=== PATIENT | male | born 1965 | race American Indian/Alaskan Native ===

== ENCOUNTER 2016-07-31 11:00 | Emergency (ER) | payer OTHER ==
--- NOTE | 2016-07-31 11:42 | XRay Report ---
RIGHT ANKLE, 2 views: History: Pain and swelling. Findings: Mild soft tissue swelling is identified. No acute osseous abnormality or joint pathology is identified. The fifth metatarsal base is intact. Probable ossicle adjacent to the distal fibula. Moderate to large plantar spur is noted. Impression: Soft tissue swelling. No acute osseous injury.
[2016-07-31] MEDS ORDERED: TORADOL IM ONE (14:26)
[2016-07-31] MEDS ORDERED: NORCO 5/325 PO ONE (14:26)
[2016-07-31 15:31] VITALS: BP 136/98
--- NOTE | 2016-07-31 15:32 | Emergency Department Report ---
Entered by NAM SAUCEDA, acting as scribe for SONALI COATES PA. ED Lower Extremity HPI - General Chief Complaint: Extremity Injury, Lower Stated Complaint: RT ANKLE INJURY Time Seen by Provider: 07/31/16 14:15 Source: patient Mode of arrival: Ambulatory Limitations: No Limitations - History of Present Illness Initial Comments: 50 year old male presents to the ED for evaluation of right ankle pain secondary to twisting injury yesterday. Patient describes his pain as sharp, throbbing pain. He rates pain as a 8/10 with weight bearing and 0/10 with rest. Denies numbness, weakness, paresthesias. Patient reports sensation and movement are intact distal to injury. Denies chest pain, shortness of breath, abdominal pain, nausea, and vomiting. MD Complaint: ankle injury (right) Onset/Timin -: days(s) Injury: Ankle: Right Type of Injury: other ("twisted") Severity scale (0 -10): 8 (with weight bearing. 0/10 at rest.) Improves With: rest Worsens With: weight bearing Associated Symptoms: ambulatory (with pain). denies: numbness, tingling - Related Data Previous Rx's Medication Instructions Recorded Last Taken Type ALBUTEROL Inhaler [ProAir HFA 2 puff IH QID PRN #1 inhalation 05/12/16 Unknown Rx Inhaler] Azithromycin [Zithromax Z-ACACIA] 250 mg PO QDAY #6 tablet 05/12/16 Unknown Rx Ibuprofen [Motrin] 800 mg PO Q8HR PRN #14 tablet 05/12/16 Unknown Rx Ondansetron [Zofran TAB] 4 mg PO Q8HR PRN #15 tablet 05/12/16 Unknown Rx Promethazine /Codeine 5 ml PO Q6H PRN #120 ml 05/12/16 Unknown Rx [Phenergan/Codeine 6.25-10 mg/5Ml] Naproxen [Naprosyn] 500 mg PO BID #30 tablet 07/31/16 Unknown Rx Allergies Allergy/AdvReac Type Severity Reaction Status Date / Time No Known Allergies Allergy Unverified 06/12/15 08:51 ED Review of Systems Comment: All other systems reviewed and negative Constitutional: denies: chills, fever Respiratory: denies: shortness of breath Cardiovascular: denies: chest pain Gastrointestinal: denies: abdominal pain, nausea, vomiting Musculoskeletal: arthralgia, other Neurological: denies: weakness, numbness, paresthesias ED Past Medical Hx - Past Medical History Hx Hypertension: Yes Hx COPD: Yes - Social History Smoking Status: Current Every Day Smoker Substance Use Type: None - Medications Home Medications: Home Medications Medication Instructions Recorded Confirmed Last Taken Type ALBUTEROL Inhaler [ProAir HFA 2 puff IH QID PRN #1 inhalation 05/12/16 Unknown Rx Inhaler] Azithromycin [Zithromax Z-ACACIA] 250 mg PO QDAY #6 tablet 05/12/16 Unknown Rx Ibuprofen [Motrin] 800 mg PO Q8HR PRN #14 tablet 05/12/16 Unknown Rx Ondansetron [Zofran TAB] 4 mg PO Q8HR PRN #15 tablet 05/12/16 Unknown Rx Promethazine /Codeine 5 ml PO Q6H PRN #120 ml 05/12/16 Unknown Rx [Phenergan/Codeine 6.25-10 mg/5Ml] Naproxen [Naprosyn] 500 mg PO BID #30 tablet 07/31/16 Unknown Rx ED Physical Exam - General Limitations: No Limitations - Other Other exam information: GENERAL: The patient is well-developed and well-nourished. Patient is in NAD. HEAD: Normocephalic. Atraumatic. CHEST/LUNGS: Clear to auscultation throughout. HEART/CARDIOVASCULAR: Regular rate and rhythm. No murmurs, rubs or gallops. ABDOMEN: Abdomen is soft, nontender. Bowel sounds normoactive. No guarding or rebound tenderness. EXTREMITIES: Limited range of motion to right ankle secondary to pain. Lateral aspect of right ankle tender to palpation. Peripheral pulses intact. Capillary refill less than 2 seconds. NEURO: Alert and oriented x 3. GCS score of 15. ED Course Vital Signs 07/31/16 07/31/16 07/31/16 11:08 14:34 15:29 Temperature 98.1 F Pulse Rate 110 H 88 Respiratory 20 20 20 Rate Blood Pressure 139/103 Blood Pressure 136/98 [Left] O2 Sat by Pulse 100 100 Oximetry ED Lower Extremity MDM - Lab Data Vital Signs 07/31/16 07/31/16 07/31/16 11:08 14:34 15:29 Temperature 98.1 F Pulse Rate 110 H 88 Respiratory 20 20 20 Rate Blood Pressure 139/103 Blood Pressure 136/98 [Left] O2 Sat by Pulse 100 100 Oximetry - Radiology Data Radiology results: report reviewed, image reviewed RIGHT ANKLE, 2 views: History: Pain and swelling. Findings: Mild soft tissue swelling is identified. No acute osseous abnormality or joint pathology is identified. The fifth metatarsal base is intact. Probable ossicle adjacent to the distal fibula. Moderate to large plantar spur is noted. Impression: Soft tissue swelling. No acute osseous injury. Transcribed By: TTR Dictated By: SHERON LEY JR, MD Electronically Authenticated By: SHERON LEY JR, MD Signed Date/Time: 07/31/16 1136 - Medical Decision Making 50 year old male patient presents today with right ankle pain secondary to injury, no tingling or numbness, x 2 days. His right ankle x-ray reveals soft tissue swelling, no fractures. Patient is in no acute distress at this time. He will be discharged home and is encouraged to follow up with a primary care provider. He will be sent home on Naprosyn and is encouraged to return to the emergency room for any worsening symptoms. ED Disposition Clinical Impression: Ankle pain Disposition: DISCHARGED TO HOME OR SELFCARE Is pt being admited?: No Does the pt Need Aspirin: No Condition: Stable Instructions: Ankle Sprain (ED), Ankle Exercises (GEN) Additional Instructions: Follow with primary care provider. Return to emergency department if symptoms worsen. Prescriptions: Naproxen [Naprosyn] 500 mg PO BID #30 tablet Referrals: PRIMARY MD MARCY [Primary Care Provider] - 3-5 Days LUIS M ARREDONDO MD [Staff Physician] - 3-5 Days Forms: Work/School Release Form(ED) Time of Disposition: 14:57 This documentation as recorded by the KOMAL huizar REBEKAH,accurately reflects the service I personally performed and the decisions made by ,SONALI COATES PA.
== END 2016-07-31 15:31 | disposition home or self-care (01) ==
LOC: ED 11:00
DX: M25.571 Pain in right ankle and joints of right foot (principal); J44.9 Chronic obstructive pulmonary disease, unspecified; I10 Essential (primary) hypertension; F17.200 Nicotine dependence, unspecified, uncomplicated; X50.1XXA Overexertion from prolonged static or awkward postures, initial encounter; Y93.89 Activity, other specified; Y92.89 Other specified places as the place of occurrence of the external cause; Y99.8 Other external cause status
CPT/HCPCS: 73600; 96372; 99283; J1885

== ENCOUNTER 2019-04-08 00:52 | Inpatient (IN) | payer OTHER ==
--- NOTE | 2019-04-08 01:10 | Emergency Department Report ---
<ABRAHAM MCCARTNEY - Last Filed: 04/08/19 03:48> ED Shortness of Breath HPI - General Chief Complaint: Dyspnea/Respdistress Stated Complaint: CARRILLO Time Seen by Provider: 04/08/19 01:10 - History of Present Illness Initial Comments: 53-year-old -Al[place]ian male patient with history of COPD and hypertension presents for sudden onset of shortness of breath prior to arrival. Patient admits to history of having to be intubated for COPD exacerbation. He denies any fever/chills/sweats, leg pain/swelling, recent long travel, history of DVT/[place]. Patient states patient has been smoking an abnormally high amount of cigarettes over the past couple of days. He denies any oxygen or inhalers/relaxers. His primary care provider is Dr. Barnes. Complaint: shortness of breath -: Sudden Pain Scale: 0 Known History Of: COPD Associated Symptoms: denies other symptoms Treatments Prior to Arrival: none - Related Data Home Oxygen Therapy: No Previous Rx's Medication Instructions Recorded Last Taken Type ALBUTEROL Inhaler (OR & NICU) 2 puff IH QID PRN #1 inhalation 05/12/16 Unknown Rx [ProAir HFA Inhaler] Azithromycin [Zithromax Z-ACACIA] 250 mg PO QDAY #6 tablet 05/12/16 Unknown Rx Ibuprofen [Motrin] 800 mg PO Q8HR PRN #14 tablet 05/12/16 Unknown Rx Ondansetron [Zofran TAB] 4 mg PO Q8HR PRN #15 tablet 05/12/16 Unknown Rx Promethazine /Codeine 5 ml PO Q6H PRN #120 ml 05/12/16 Unknown Rx [Phenergan/Codeine 6.25-10 mg/5Ml] Naproxen [Naprosyn] 500 mg PO BID #30 tablet 07/31/16 Unknown Rx Allergies Allergy/AdvReac Type Severity Reaction Status Date / Time No Known Allergies Allergy Unverified 06/12/15 08:51 ED Review of Systems Constitutional: denies: chills, fever Eyes: denies: vision change Respiratory: shortness of breath, SOB at rest Cardiovascular: denies: chest pain, edema, syncope Gastrointestinal: denies: abdominal pain, nausea Musculoskeletal: denies: back pain Skin: denies: rash, lesions Neurological: denies: headache, weakness, numbness, abnormal gait Hematological/Lymphatic: denies: easy bleeding, easy bruising ED Past Medical Hx - Past Medical History Hx Hypertension: Yes Hx COPD: Yes - Social History Smoking Status: Current Every Day Smoker Substance Use Type: None - Medications Home Medications: Home Medications Medication Instructions Recorded Confirmed Last Taken Type ALBUTEROL Inhaler (OR & NICU) 2 puff IH QID PRN #1 inhalation 05/12/16 Unknown Rx [ProAir HFA Inhaler] Azithromycin [Zithromax Z-ACACIA] 250 mg PO QDAY #6 tablet 05/12/16 Unknown Rx Ibuprofen [Motrin] 800 mg PO Q8HR PRN #14 tablet 05/12/16 Unknown Rx Ondansetron [Zofran TAB] 4 mg PO Q8HR PRN #15 tablet 05/12/16 Unknown Rx Promethazine /Codeine 5 ml PO Q6H PRN #120 ml 05/12/16 Unknown Rx [Phenergan/Codeine 6.25-10 mg/5Ml] Naproxen [Naprosyn] 500 mg PO BID #30 tablet 07/31/16 Unknown Rx ED Physical Exam - General General appearance: alert, in distress - Head Head exam: Present: atraumatic, normocephalic - Eye Eye exam: Present: normal appearance - ENT ENT exam: Present: normal exam - Neck Neck exam: Present: normal inspection, full ROM. Absent: lymphadenopathy - Respiratory Respiratory exam: Present: wheezes, rhonchi. Absent: chest wall tenderness - Cardiovascular Cardiovascular Exam: Present: regular rate, normal rhythm - GI/Abdominal GI/Abdominal exam: Present: soft. Absent: distended, tenderness, guarding, rebound, rigid - Rectal Rectal exam: Present: deferred - Extremities Exam Extremities exam: Present: normal inspection. Absent: pedal edema, joint swelling, calf tenderness - Neurological Exam Neurological exam: Present: alert, oriented X3 - Psychiatric Psychiatric exam: Present: normal affect, normal mood - Skin Skin exam: Present: warm, dry, intact, normal color. Absent: rash ED Medical Decision Making - Lab Data Result diagrams: 04/08/19 01:37 04/08/19 01:37 - Radiology Data Radiology results: report reviewed CHEST 1 VIEW, 04/08/2019 1:16 AM CLINICAL INFORMATION/INDICATION: Shortness of breath COMPARISON: Chest radiograph, 06/18/2018 FINDINGS: SUPPORT DEVICES: None. HEART: The cardiac silhouette is within normal limits in size. LUNGS/PLEURA: There is no focal airspace disease or significant pleural effusion. ADDITIONAL FINDINGS: No additional acute findings. IMPRESSION: 1. No evidence of acute cardiopulmonary process. - Medical Decision Making 53-year-old male patient with COPD and hypertension history presents with sudden onset of shortness of breath today. Patient satting in the 70s on arrival despite being on CPAP. Hour-long DuoNeb given and patient placed on BiPAP at 100% oxygen. Patient now satting at 100% on BiPAP. Chest x-ray is negative for acute abnormalities. Wbc's are normal. Anion gap elevated at 31, hyponatremia also noted. Saline bolus given, will recheck BMP postinfusion. ABG shows oxygen at 56 with a normal pH and CO2. Patient to be admitted for respiratory distress. Critical Care Time: Yes Critical care time in (mins) excluding proc time.: 31 Critical Care Time: 31 minutes. Critical care time spent with pt due to pt having severe hypoxia on room air-O2 saturation in the 70s-and pt requiring BIPAP ventilation. ED Disposition Clinical Impression: Respiratory distress, Hypoxia, Transaminitis Disposition: OP ADMIT IP TO THIS HOSP Is pt being admited?: Yes Condition: Fair Referrals: PRIMARY CARE, [Primary Care Provider] - 3-5 Days <JOSE LUIS MOMIN - Last Filed: 04/08/19 03:52> ED Review of Systems ROS: Stated complaint: CARRILLO Other details as noted in HPI ED Course Vital Signs 04/08/19 04/08/19 04/08/19 00:58 01:01 01:11 Temperature 98.3 F Pulse Rate 76 71 73 Pulse Rate [ Bilateral Throughout] Respiratory 20 21 19 Rate Respiratory Rate [Bilateral Throughout] Blood Pressure 123/88 123/88 O2 Sat by Pulse 80 L 85 85 Oximetry 04/08/19 04/08/19 04/08/19 01:15 01:30 01:36 Temperature Pulse Rate 71 66 65 Pulse Rate [ Bilateral Throughout] Respiratory 18 21 21 Rate Respiratory Rate [Bilateral Throughout] Blood Pressure 107/69 108/70 108/70 O2 Sat by Pulse 88 100 100 Oximetry 04/08/19 04/08/19 04/08/19 01:40 01:45 02:00 Temperature Pulse Rate 67 64 Pulse Rate [ 67 Bilateral Throughout] Respiratory 18 20 Rate Respiratory 23 Rate [Bilateral Throughout] Blood Pressure 114/68 116/77 O2 Sat by Pulse 100 100 Oximetry ED Medical Decision Making - Lab Data Result diagrams: 04/08/19 01:37 04/08/19 01:37 - Medical Decision Making I saw this patient in conjunction with the mid-level provider including his initial evaluation and multiple re-evaluations. At first the patient had hypoxia even with CPAP and supplemental oxygen. He was placed on BiPAP and his pulse ox went up into the mid to high 80s. At some point patient appeared to expectorate some bronchial secretions and his oxygen went up into the high 90s. ABG showed hypoxia without any significant acid base abnormalities. Patient's labs have been mostly unremarkable. However the patient is not oxygen dependent at home and still does appear to require supplemental oxygen and the BiPAP for help with his work of breathing. The patient will be admitted to the hospital and was accepted for admission by the hospitalist, Dr. Lakhani. Critical care attestation.: If time is entered above; I have spent that time in minutes in the direct care of this critically ill patient, excluding procedure time. ED Disposition Is pt being admited?: Yes
[2019-04-08] MEDS ORDERED: ALBUTEROL 2.5 MG/3 ML NEBU IH ONE ×2 (01:24→01:27)
[2019-04-08] MEDS ORDERED: IPRATROPIUM 0.02% NEBU 2.5 ML IH ONE ×2 (01:24→01:27)
[2019-04-08] MEDS ORDERED: methylPREDNISolone Sod Succinate 125 MG/2 ML INJ IV ONE (01:24)
--- NOTE | 2019-04-08 01:45 | XRay Report ---
CHEST 1 VIEW, 04/08/2019 1:16 AM CLINICAL INFORMATION/INDICATION: Shortness of breath COMPARISON: Chest radiograph, 06/18/2018 FINDINGS: SUPPORT DEVICES: None. HEART: The cardiac silhouette is within normal limits in size. LUNGS/PLEURA: There is no focal airspace disease or significant pleural effusion. ADDITIONAL FINDINGS: No additional acute findings. IMPRESSION: 1. No evidence of acute cardiopulmonary process. Signer Name: Kaleigh Olivas MD Signed: 04/08/2019 1:40 AM Workstation Name: [id number]
[2019-04-08 02:06] LABS: Hematocrit 37.3 % (35.5-45.6); Hemoglobin 12.3 gm/dl (11.8-15.2); Mean Corpuscular HGB Conc 33 % (32-34); Mean Corpuscular Volume 91 fl (84-94); Red Cell Distribution Width 16.2 % (13.2-15.2)
[2019-04-08 02:10] LABS: Platelet Count 81 K/mm3 (140-440)
[2019-04-08 02:17] LABS: INR 0.94 (0.87-1.13)
[2019-04-08 02:34] LABS: Alanine Aminotransferase 61 units/L (7-56); Albumin 3.8 g/dL (3.9-5); BUN/Creatinine Ratio 10; Blood Urea Nitrogen 7 mg/dL (9-20); Hemolysis Index 3
[2019-04-08] MEDS ORDERED: SODIUM CHLORIDE 0.9% 1000 ML 1,000 ML IV ONE (02:39)
[2019-04-08] MEDS ORDERED: ONDANSETRON 4 MG/2 ML INJ IV PRN ×2 (04:23→04:25)
[2019-04-08] MEDS ORDERED: ACETAMINOPHEN 325 MG TAB PO PRN ×2 (04:23→04:25)
--- NOTE | 2019-04-08 04:30 | History and Physical Report ---
History of Present Illness Date of examination: 04/08/19 History of present illness: 53 -year-old man admitted here for hypertension, COPD comes emergency room with complaints of shortness of breath and chest tightness. State he started wheezing, symptoms were not relieved with his albuterol. He has a cough productive of off-white phlegm, no fever or chills. She derives in the emergency room hypoxic on CPAP, illicit shoulder to BiPAP Review of systems Constitutional: no weight loss, chills, fever Ears, eyes, nose, mouth and throat: no nasal congestion, no nasal discharge, no sinus pressure, no vision change, no red eye. Neck: No neck pain or rigidity. Cardiovascular: no chest pain, palpitations Respiratory: +cough, shortness of breath Gastrointestinal: no abdominal pain hematochezia Genitourinary : no frequency , no hematuria Musculoskeletal: no joint swelling or muscle ache Integumentary: no rash, no pruritis Neurological: no parathesias, no numbness, no focal weakness Endocrine: no cold or heat intolerance, no polyuria or polydipsia Hematologic/Lymphatic: no easy bruising, no easy bleeding, no gland swelling Allergic/Immunologic: no urticaria, no angioedema. PAST MEDICAL HISTORY hypertension, COPD PAST SURGICAL HISTORY: Cyst removed from brain SOCIAL HISTORY: No drugs, tobacco, alcohol FAMILY HISTORY: Hypertension Medications and Allergies Allergies Allergy/AdvReac Type Severity Reaction Status Date / Time No Known Allergies Allergy Unverified 06/12/15 08:51 Home Medications Medication Instructions Recorded Confirmed Last Taken Type ALBUTEROL Inhaler (OR & NICU) 2 puff IH QID PRN #1 inhalation 05/12/16 Unknown Rx [ProAir HFA Inhaler] Azithromycin [Zithromax Z-ACACIA] 250 mg PO QDAY #6 tablet 05/12/16 Unknown Rx Ibuprofen [Motrin] 800 mg PO Q8HR PRN #14 tablet 05/12/16 Unknown Rx Ondansetron [Zofran TAB] 4 mg PO Q8HR PRN #15 tablet 05/12/16 Unknown Rx Promethazine /Codeine 5 ml PO Q6H PRN #120 ml 05/12/16 Unknown Rx [Phenergan/Codeine 6.25-10 mg/5Ml] Naproxen [Naprosyn] 500 mg PO BID #30 tablet 07/31/16 Unknown Rx Active Meds: Active Medications Acetaminophen (Tylenol) 650 mg PO Q4H PRN PRN Reason: Pain MILD(1-3)/Fever >100.5/GIBSON Sodium Chloride (Nacl 0.9% 1000 Ml) 1,000 mls @ 75 mls/hr IV DIRECT [place] Ondansetron HCl (Zofran) 4 mg IV Q8H PRN PRN Reason: Nausea And Vomiting Sodium Chloride (Sodium Chloride Flush Syringe 10 Ml) 10 ml IV BID [place] Sodium Chloride (Sodium Chloride Flush Syringe 10 Ml) 10 ml IV PRN PRN PRN Reason: LINE FLUSH Exam - Physical Exam Narrative exam: Gen. appearance: Patient lying in bed, no apparent distress HEENT: Normocephalic, atraumatic, pupils equally round and reactive to light, extraocular movement intact, and no sclericterus,. No JVD or thyromegaly or nodule,neck supple, no carotid bruit ,mucous membranes moist, no exudate or erythema Heart: S1, S2, regular rate and rhythm Lungs:wheezing, breathing comfortable Abdomen: Positive bowel sounds, non-tender, nondistended, no organomegaly Extremity:no edema cyanosis, clubbing Skin: no rash, dry, warm Neuro: Oriented 3, cranial nerves II-12 intact, speech is fluent, motor and sensory intact - Constitutional Vitals: Temp Pulse Resp BP Pulse Ox 98.3 F 64 20 116/77 100 04/08/19 01:11 04/08/19 02:00 04/08/19 02:00 04/08/19 02:00 04/08/19 02:00 Results - Labs CBC & Chem 7: 04/08/19 01:37 04/08/19 04:24 Labs: Abnormal lab results 04/08/19 04/08/19 04/08/19 Range/Units 01:31 01:37 01:37 WBC 4.0 L (4.5-11.0) K/mm3 RDW 16.2 H (13.2-15.2) % Plt Count 81 L (140-440) K/mm3 D-Dimer (0-234) ng/mlDDU POC ABG pO2 56 L (80-105) Sodium 128 L (137-145) mmol/L Chloride 81.8 L (98-107) mmol/L Carbon Dioxide 19 L (22-30) mmol/L BUN 7 L (9-20) mg/dL Creatinine 0.7 L (0.8-1.5) mg/dL AST 65 H (5-40) units/L ALT 61 H (7-56) units/L Albumin 3.8 L (3.9-5) g/dL 04/08/19 Range/Units 03:46 WBC (4.5-11.0) K/mm3 RDW (13.2-15.2) % Plt Count (140-440) K/mm3 D-Dimer 436.46 H (0-234) ng/mlDDU POC ABG pO2 (80-105) Sodium (137-145) mmol/L Chloride (98-107) mmol/L Carbon Dioxide (22-30) mmol/L BUN (9-20) mg/dL Creatinine (0.8-1.5) mg/dL AST (5-40) units/L ALT (7-56) units/L Albumin (3.9-5) g/dL - Imaging and Cardiology EKG: image reviewed Chest x-ray: report reviewed Assessment and Plan Assessment Acute respiratory failure COPD exacerbation Hyponatremia Alcohol abuse Plan Admit to medicine Start IV steroids, nebulizer treatments Check CT chest, enzymes, start IV fluid DVT prophylaxis, continue BiPAP Monitor for DTs Addendum Ct shows pneumonia, add levaquin
[2019-04-08] MEDS ORDERED: SODIUM CHLORIDE 0.9% 1000 ML 1,000 ML IV SCH (05:00)
--- NOTE | 2019-04-08 05:19 | Cat Scan Report ---
CTA CHEST WITH IV CONTRAST, 04/08/2019 INDICATION: Shortness of breath. TECHNIQUE: Axial CT images were obtained through the chest after injection of IV contrast. Coronal oblique 2-D reconstruction images were produced. 3 plane MIP reconstruction images were produced at an [employer] workstation. All CTs at this facility utilize dose reduction techniques including automated expos ure control, iterative reconstruction and weight based dosing when appropriate to reduce patient radi ation dose to as low as reasonable achievable. COMPARISON: CTA of the chest, 05/12/2016 FINDINGS: There is suboptimal timing of the contrast bolus on today's evaluation which limits evaluation of the pulmonary arteries. Most of the contrast is noted within the aorta. No obvious central large pulmona ry embolism is identified. The heart is normal in size. Evaluation of the lung parenchyma demonstrate s few patchy airspace densities within the lingula and right lower lobe. There is no pleural effusion . Limited imaging of the upper abdomen demonstrates markedly decreased attenuation throughout the hepat ic parenchyma. The spleen is not enlarged. Evaluation of bony structures demonstrates no evidence of destructive bony lesion. IMPRESSION: 1. Suboptimal timing of contrast bolus on today's study for evaluation of the pulmonary arteries. Th ere is no evidence of large central embolism. 2. Minimal faint patchy airspace densities within the right lower lobe and lingula. These are nonspec ific but suggest an infectious or inflammatory process. 3. Marked hepatic steatosis. Signer Name: Kaleigh Olivas MD Signed: 04/08/2019 5:15 AM Workstation Name: [id number]
[2019-04-08 05:26] LABS: BUN/Creatinine Ratio 10; Blood Urea Nitrogen 7 mg/dL (9-20); Calcium 9.1 mg/dL (8.4-10.2); Hemolysis Index 0
[2019-04-08 05:44] LABS: Creatine Kinase MB 4.6 ng/mL (0.0-4.0)
--- NOTE | 2019-04-08 08:37 | Progress Note ---
Assessment and Plan Assessment and plan: 53-year-old presents with acute respiratory failure secondary to right lower lobe pneumonia. Currently hemodynamically stable. - Patient Problems (1) Acute respiratory failure with hypoxemia Current Visit: Yes Status: Acute Plan to address problem: Acute hypoxic respiratory failure secondary to pneumonia as well as COPD exacerbation. Patient placed on Ventimask at present. Albuterol Atrovent nebulizers. Patient started on Levaquin for right middle lobe pneumonia. Follow blood culture data. (2) Pneumonia Current Visit: Yes Status: Acute Qualifiers: Laterality: right Plan to address problem: We'll obtain blood culture followed data. Levaquin IV. Supportive care. Increased risk secondary to alcoholism. (3) COPD (chronic obstructive pulmonary disease) Current Visit: Yes Status: Acute Plan to address problem: We'll predicted exacerbation secondary to right lower lobe pneumonia. Albuterol Atrovent nebulizers. Treatment underlying etiology pneumonia. Supportive care oxygen. Steroids were IV Solu-Medrol. (4) Hyponatremia Current Visit: Yes Status: Acute Plan to address problem: Hypovolemic hyponatremia. Patient also using alcohol. We'll treat with IV nor mal saline and intravascular volume replacement. (5) Alcohol abuse Current Visit: Yes Status: Acute Plan to address problem: We'll place patient on CIWA protocol. Appears to be stable at this particular time. Counseled about alcohol vomiting aspiration pneumonia and the connection between the 2. History Interval history: Patient 53-year-old history of hypertension COPD alcohol dependency presents with acute respiratory failure shortness of breath chest tightness and wheezing. Etiology. Could be pneumonia right lower lobe pneumonia. At present patient has persistent cough shortness of breath. Hospitalist Physical - Constitutional Vitals: Temp Pulse Resp BP Pulse Ox 97.9 F 78 18 109/76 95 04/08/19 08:33 04/08/19 08:33 04/08/19 08:33 04/08/19 08:33 04/08/19 08:33 General appearance: Present: mild distress - EENT Eyes: Present: PERRL, EOM intact ENT: hearing intact, clear oral mucosa - Neck Neck: Present: supple, normal ROM - Respiratory Respiratory: right: diminished, rhonchi - Cardiovascular Rhythm: regular - Abdominal General gastrointestinal: soft, non-tender, non-distended, normal bowel sounds - Integumentary Integumentary: Present: clear, warm, dry - Psychiatric Psychiatric: appropriate mood/affect, intact judgment & insight Results - Labs CBC & Chem 7: 04/08/19 01:37 04/08/19 04:24 Labs: Laboratory Last Values WBC 4.0 K/mm3 (4.5-11.0) L 04/08/19 01:37 RBC 4.10 M/mm3 (3.65-5.03) 04/08/19 01:37 Hgb 12.3 gm/dl (11.8-15.2) 04/08/19 01:37 Hct 37.3 % (35.5-45.6) 04/08/19 01:37 MCV 91 fl (84-94) 04/08/19 01:37 MCH 30 pg (28-32) 04/08/19 01:37 MCHC 33 % (32-34) 04/08/19 01:37 RDW 16.2 % (13.2-15.2) H 04/08/19 01:37 Plt Count 81 K/mm3 (140-440) L 04/08/19 01:37 PT 12.5 Sec. (12.2-14.9) 04/08/19 01:37 INR 0.94 (0.87-1.13) 04/08/19 01:37 D-Dimer 436.46 ng/mlDDU (0-234) H 04/08/19 03:46 POC ABG pH 7.361 (7.35-7.45) 04/08/19 01:31 POC ABG pCO2 38.0 (35-45) 04/08/19 01:31 POC ABG pO2 56 (80-105) L 04/08/19 01:31 POC ABG HCO3 21.5 (22-26 mml/L) 04/08/19 01:31 POC ABG Total CO2 23 (23-27mmol/L) 04/08/19 01:31 POC ABG O2 Sat 88 04/08/19 01:31 POC ABG Base Excess -4 ((-2) - (+3)mmol/L) 04/08/19 01:31 FiO2 100 % 04/08/19 01:31 Sodium 128 mmol/L (137-145) L 04/08/19 04:24 Potassium 4.4 mmol/L (3.6-5.0) 04/08/19 04:24 Chloride 82.5 mmol/L (98-107) L 04/08/19 04:24 Carbon Dioxide 18 mmol/L (22-30) L 04/08/19 04:24 Anion Gap 32 mmol/L 04/08/19 04:24 BUN 7 mg/dL (9-20) L 04/08/19 04:24 Creatinine 0.7 mg/dL (0.8-1.5) L 04/08/19 04:24 Estimated GFR > 60 ml/min 04/08/19 04:24 BUN/Creatinine Ratio 10 % 04/08/19 04:24 Glucose 81 mg/dL (75-100) 04/08/19 04:24 Calcium 9.1 mg/dL (8.4-10.2) 04/08/19 04:24 Total Bilirubin 0.40 mg/dL (0.1-1.2) 04/08/19 01:37 AST 65 units/L (5-40) H 04/08/19 01:37 ALT 61 units/L (7-56) H 04/08/19 01:37 Alkaline Phosphatase 121 units/L (35-129) 04/08/19 01:37 Total Creatine Kinase 69 units/L (55-170) 04/08/19 04:58 CK-MB (CK-2) 4.6 ng/mL (0.0-4.0) H 04/08/19 04:58 CK-MB (CK-2) Rel Index 6.6 (0-4) H 04/08/19 04:58 Troponin T < 0.010 ng/mL (0.00-0.029) 04/08/19 04:58 NT-Pro-B Natriuret Pep 54.54 pg/mL (0-900) 04/08/19 01:37 Total Protein 7.0 g/dL (6.3-8.2) 04/08/19 01:37 Albumin 3.8 g/dL (3.9-5) L 04/08/19 01:37 Albumin/Globulin Ratio 1.2 % 04/08/19 01:37 - Imaging and Cardiology Chest x-ray: image reviewed Active Medications - Current Medications Current Medications: Generic Name Dose Route Start Last Admin Trade Name Freq PRN Reason Stop Dose Admin Acetaminophen 650 mg 04/08/19 04:23 Tylenol PO Q4H PRN Pain MILD(1-3)/Fever >100.5/GIBSON Albuterol/Ipratropium 1 ampul 04/08/19 08:00 Duoneb *Not For Prn Use* IH QIDRT LEXA Sodium Chloride 1,000 mls @ 75 mls/hr 04/08/19 05:00 04/08/19 07:50 Nacl 0.9% 1000 Ml IV 75 mls/hr DIRECT LEXA Administration Levofloxacin/Dextrose 750 mg in 150 mls @ 100 mls/hr 04/08/19 06:00 04/08/19 07:51 Levaquin 750mg/150ml IV 100 mls/hr Q24H LEXA Administration Protocol Ondansetron HCl 4 mg 04/08/19 04:23 Zofran IV Q8H PRN Nausea And Vomiting Pneumococcal Polyvalent Vaccine 0.5 ml 04/08/19 12:00 Pneumovax 23 IM 04/08/19 12:01 .ONCE ONE Sodium Chloride 10 ml 04/08/19 10:00 Sodium Chloride Flush Syringe 10 Ml IV BID LEXA Sodium Chloride 10 ml 04/08/19 04:23 Sodium Chloride Flush Syringe 10 Ml IV PRN PRN LINE FLUSH
[2019-04-08] MEDS: IPRATROPIUM/ALBUTEROL SULFATE 3 ML AMPUL.NEB IH SCH ×4 (08:58→19:43)
[2019-04-08] MEDS ORDERED: PNEUMOCOCCAL 23 Valent 0.5 ML VIAL IM ONE (12:00)
[2019-04-08 13:55] LABS: Creatine Kinase MB 3.9 ng/mL (0.0-4.0)
[2019-04-08] MEDS ORDERED: chlordiazePOXIDE 25 MG CAP PO PRN (18:24)
[2019-04-08] MEDS ORDERED: LORazepam 2 MG/ML VIAL IV PRN (18:24)
[2019-04-09 05:00] LABS: Basophils % (Auto) 0.2 % (0.0-1.8); Hematocrit 35.9 % (35.5-45.6); Hemoglobin 11.8 gm/dl (11.8-15.2); Lymphocytes # (Auto) 0.3 K/mm3 (1.2-5.4); Lymphocytes % (Auto) 4.1 % (13.4-35.0); Mean Corpuscular HGB Conc 33 % (32-34); Mean Corpuscular Volume 91 fl (84-94); Monocytes # (Auto) 0.8 K/mm3 (0.0-0.8); Monocytes % (Auto) 10.8 % (0.0-7.3); Red Blood Count 3.96 M/mm3 (3.65-5.03); Red Cell Distribution Width 15.9 % (13.2-15.2)
[2019-04-09 05:14] LABS: BUN/Creatinine Ratio 9; Blood Urea Nitrogen 7 mg/dL (9-20); Hemolysis Index 6
[2019-04-09 05:25] LABS: Platelet Count 99 K/mm3 (140-440)
[2019-04-09 06:29] LABS: Calcium 9.7 mg/dL (8.4-10.2)
[2019-04-09] MEDS: IPRATROPIUM/ALBUTEROL SULFATE 3 ML AMPUL.NEB IH SCH ×2 (07:47→11:54)
[2019-04-09 09:45] LABS: Basophils % (Auto) 0.3 % (0.0-1.8); Hematocrit 37.9 % (35.5-45.6); Hemoglobin 12.3 gm/dl (11.8-15.2); Lymphocytes # (Auto) 0.3 K/mm3 (1.2-5.4); Lymphocytes % (Auto) 5.5 % (13.4-35.0); Mean Corpuscular HGB Conc 32 % (32-34); Mean Corpuscular Volume 92 fl (84-94); Monocytes # (Auto) 0.6 K/mm3 (0.0-0.8); Monocytes % (Auto) 10.6 % (0.0-7.3); Red Blood Count 4.11 M/mm3 (3.65-5.03)
[2019-04-09 10:02] LABS: BUN/Creatinine Ratio 10; Blood Urea Nitrogen 7 mg/dL (9-20); Calcium 9.6 mg/dL (8.4-10.2); Hemolysis Index 51
[2019-04-09 10:36] LABS: Platelet Count 90 K/mm3 (140-440)
[2019-04-09 10:42] VITALS: BP 144/88
--- NOTE | 2019-04-09 12:31 | Discharge Summary ---
Providers - Providers Date of Admission: 04/08/19 04:23 Attending physician: SAMIRA ABBOTT MD Primary care physician: MALLORIE NAVA MD Hospitalization Reason for admission: shortness of breath Condition: Stable Hospital course: Patient 53-year-old history of hypertension COPD alcohol dependency presents with acute respiratory failure shortness of breath chest tightness and wheezing. Etiology. Could be pneumonia right lower lobe pneumonia. At present patient has persistent cough shortness of breath. Home o2 eval was normal (1) Acute respiratory failure with hypoxemia Acute hypoxic respiratory failure secondary to pneumonia as well as COPD exacerbation. Patient placed on Ventimask at present. Albuterol Atrovent nebulizers. Patient started on Levaquin for right middle lobe pneumonia. Follow blood culture data. all negative. He was wean off ventuli mask and is now stable for discharge (2) Pneumonia-aspiration Levaquin IV. Supportive care. Increased risk secondary to alcoholism. (3) COPD (chronic obstructive pulmonary disease) We'll predicted exacerbation secondary to right lower lobe pneumonia. Albuterol Atrovent nebulizers. Treatment underlying etiology pneumonia. Supportive care oxygen. Steroids were IV Solu-Medrol tapered over two days adn transitioned to oral. (4) Hyponatremia Hypovolemic hyponatremia. Patient also using alcohol. extensive counselling provided for 15 mins on etoh cessation (5) Alcohol abuse We'll place patient on CIWA protocol. Appears to be stable at this particular time. Counseled about alcohol vomiting aspiration pneumonia and the connection between the 2. Disposition: DC-01 TO HOME OR SELFCARE Time spent for discharge: 35 mins Core Measure Documentation - Palliative Care Palliative Care/ Comfort Measures: Not Applicable - Core Measures Any of the following diagnoses?: none Exam - Physical Exam Narrative exam: General appearance: Present: mild distress - EENT Eyes: Present: PERRL, EOM intact ENT: hearing intact, clear oral mucosa - Neck Neck: Present: supple, normal ROM - Respiratory Respiratory: right: diminished, rhonchi - Cardiovascular Rhythm: regular - Abdominal General gastrointestinal: soft, non-tender, non-distended, normal bowel sounds - Integumentary Integumentary: Present: clear, warm, dry - Psychiatric Psychiatric: appropriate mood/affect, intact judgment & insight - Constitutional Vitals: Temp Pulse Resp BP Pulse Ox 98.0 F 76 18 144/88 100 04/09/19 10:41 04/09/19 10:41 04/09/19 10:41 04/09/19 10:41 04/09/19 10:41 Plan Activity: advance as tolerated, fall precautions Diet: low fat Special Instructions: record daily weights, record daily BP diary, smoking cessation, other (quit etoh and tobacco) Durable Medical Equipment Needed Upon Discharge: other (quit) Follow up with: PRIMARY CARE, [Referring] - 3-5 Days NANCY GOLD MD [Staff Physician] - 7 Days JUNAID JANG MD [Staff Physician] - 7 Days Prescriptions: Folic Acid [Folvite] 1 mg PO QDAY #30 tablet levoFLOXacin [Levaquin] 750 mg PO QDAY #5 tablet Multivitamin Tab [Multiple Vitamin TAB (Theragran)] 1 each PO QDAY #30 tablet ALBUTEROL Inhaler (OR & NICU) [ProAir HFA Inhaler] 2 puff IH QID PRN #1 inhalation PRN Reason: Shortness Of Breath Thiamine [Vitamin B-1] 100 mg PO QDAY #30 tablet
== END 2019-04-09 14:50 | disposition home or self-care (01) | DRG 177 ==
LOC: ED 00:52 → 4A 04:23
PROVIDERS: ADMIT Internal Medicine; ATTEND Internal Medicine
PROC: 5A09357 Assistance with Respiratory Ventilation, Less than 24 Consecutive Hours, Continuous Positive Airway Pressure (ICD-10-PCS; principal; 2019-04-08)
PROC: 4A033R1 Measurement of Arterial Saturation, Peripheral, Percutaneous Approach (ICD-10-PCS; 2019-04-08)
PROC: 3E0234Z Introduction of Serum, Toxoid and Vaccine into Muscle, Percutaneous Approach (ICD-10-PCS; 2019-04-08)
DX: J69.0 Pneumonitis due to inhalation of food and vomit (principal); J96.01 Acute respiratory failure with hypoxia; J44.1 Chronic obstructive pulmonary disease with (acute) exacerbation; J44.0 Chronic obstructive pulmonary disease with (acute) lower respiratory infection; E87.1 Hypo-osmolality and hyponatremia; F10.10 Alcohol abuse, uncomplicated; I10 Essential (primary) hypertension; F17.200 Nicotine dependence, unspecified, uncomplicated; R74.0 Nonspecific elevation of levels of transaminase and lactic acid dehydrogenase [LDH]; Z71.41 Alcohol abuse counseling and surveillance of alcoholic; Z82.49 Family history of ischemic heart disease and other diseases of the circulatory system; Z79.899 Other long term (current) drug therapy; Z23 Encounter for immunization
CPT/HCPCS: 36415; 71045; 71275; 80048; 80053; 82550; 82553; 82803; 83880; 84484; 85025; 85027; 85379; 85610; 90732; 93005; 93010; 94640; 94644; 94760; 96365; 99406; G0378; J1956; J2930; J7030; Q9967

== ENCOUNTER 2019-06-26 16:27 | Emergency (ER) | payer OTHER ==
[2019-06-26] MEDS ORDERED: ALBUTEROL 2.5 MG/3 ML NEBU IH ONE (16:36)
[2019-06-26] MEDS ORDERED: AZITHROMYCIN 500 MG in SODIUM CHLORIDE 0.9% 250ML 250 ML IV ONE (16:37)
--- NOTE | 2019-06-26 17:05 | Emergency Department Report ---
ED Shortness of Breath HPI - General Chief Complaint: Dyspnea/Respdistress Stated Complaint: SOB Time Seen by Provider: 06/26/19 16:36 Source: patient, family, EMS Mode of arrival: Stretcher Limitations: No Limitations - History of Present Illness Initial Comments: Patient is a 53-year-old -[place] male who comes to the ER today with difficulty in breathing. Patient has COPD. He was a continuous smoker. Patient has no fever on admission. Per EMS did give him Solu-Medrol and albuterol in route. Patient denies fever or chills. He states he only has pain when he coughs and the pain is in his chest. He endorses vomiting when he coughs. Patient states he is taking his home medications. Patient has a history of acute and chronic alcohol abuse. Also history of acute on chronic hyponatremia. Patient has hypertension. Patient lives with his . She is at bedside. I suspect the patient is not as compliant as he is leading provider to believe. MD Complaint: shortness of breath -: Gradual, days(s) Consistency: intermittent Improves With: nothing Worsens With: nothing Context: recent URI Associated Symptoms: denies other symptoms, chest pain (w cough), nausea/vomiting (with cough) Treatments Prior to Arrival: bronchodilator, other - Related Data Home Oxygen Therapy: No Previous Rx's Medication Instructions Recorded Last Taken Type Albuterol INH(or & Nicu Only) 2 puff IH QID PRN #1 inhalation 04/09/19 Unknown Rx [ProAir HFA Inhaler] Folic Acid [Folvite] 1 mg PO QDAY #30 tablet 04/09/19 Unknown Rx Multivitamin Tab [Multiple Vitamin 1 each PO QDAY #30 tablet 04/09/19 Unknown Rx TAB (Theragran)] Thiamine [Vitamin B-1] 100 mg PO QDAY #30 tablet 04/09/19 Unknown Rx Albuterol INH(or & Nicu Only) 2 puff IH QID PRN #1 inhalation 06/26/19 Unknown Rx [ProAir HFA Inhaler] Benzonatate [Tessalon Perles] 100 mg PO Q12H PRN #20 capsule 06/26/19 Unknown Rx Cetirizine HCl [ZyrTEC] 10 mg PO DAILY #30 capsule 06/26/19 Unknown Rx Fluticasone [Flonase] 1 spray NS QDAY #1 bottle 06/26/19 Unknown Rx levoFLOXacin [Levaquin TAB] 500 mg PO QDAY #10 tablet 06/26/19 Unknown Rx predniSONE [Deltasone] 50 mg PO QDAY #5 tab 06/26/19 Unknown Rx Allergies Allergy/AdvReac Type Severity Reaction Status Date / Time No Known Allergies Allergy Verified 06/26/19 17:23 ED Review of Systems ROS: Stated complaint: SOB Other details as noted in HPI Comment: All other systems reviewed and negative ED Past Medical Hx - Past Medical History Hx Hypertension: Yes Hx COPD: Yes - Surgical History Past Surgical History?: Yes Additional Surgical History: Brain sx - Family History Family history: no significant - Social History Smoking Status: Current Every Day Smoker Substance Use Type: None - Medications Home Medications: Home Medications Medication Instructions Recorded Confirmed Last Taken Type Albuterol INH(or & Nicu Only) 2 puff IH QID PRN #1 inhalation 04/09/19 Unknown Rx [ProAir HFA Inhaler] Folic Acid [Folvite] 1 mg PO QDAY #30 tablet 04/09/19 Unknown Rx Multivitamin Tab [Multiple Vitamin 1 each PO QDAY #30 tablet 04/09/19 Unknown Rx TAB (Theragran)] Thiamine [Vitamin B-1] 100 mg PO QDAY #30 tablet 04/09/19 Unknown Rx Albuterol INH(or & Nicu Only) 2 puff IH QID PRN #1 inhalation 06/26/19 Unknown Rx [ProAir HFA Inhaler] Benzonatate [Tessalon Perles] 100 mg PO Q12H PRN #20 capsule 06/26/19 Unknown Rx Cetirizine HCl [ZyrTEC] 10 mg PO DAILY #30 capsule 06/26/19 Unknown Rx Fluticasone [Flonase] 1 spray NS QDAY #1 bottle 06/26/19 Unknown Rx levoFLOXacin [Levaquin TAB] 500 mg PO QDAY #10 tablet 06/26/19 Unknown Rx predniSONE [Deltasone] 50 mg PO QDAY #5 tab 06/26/19 Unknown Rx ED Physical Exam - General Limitations: No Limitations General appearance: alert, in no apparent distress - Head Head exam: Present: atraumatic, normocephalic - Eye Eye exam: Present: normal appearance - ENT ENT exam: Present: mucous membranes moist - Neck Neck exam: Present: normal inspection - Respiratory Respiratory exam: Present: normal lung sounds bilaterally, wheezes, rhonchi. Absent: respiratory distress, rales, stridor, chest wall tenderness, accessory muscle use, decreased breath sounds, prolonged expiratory - Cardiovascular Cardiovascular Exam: Present: regular rate, normal rhythm. Absent: systolic murmur, diastolic murmur, rubs, gallop - GI/Abdominal GI/Abdominal exam: Present: soft, normal bowel sounds - Rectal Rectal exam: Present: deferred - Extremities Exam Extremities exam: Present: normal inspection - Back Exam Back exam: Present: normal inspection - Neurological Exam Neurological exam: Present: alert, oriented X3 - Psychiatric Psychiatric exam: Present: normal affect, normal mood - Skin Skin exam: Present: warm, dry, intact, normal color. Absent: rash ED Course Vital Signs 06/26/19 06/26/19 06/26/19 16:45 16:53 17:00 Temperature 98.0 F Pulse Rate 104 H 104 H 98 H Pulse Rate [ Anterior Bilateral Throughout] Respiratory 16 19 18 Rate Respiratory Rate [Anterior Bilateral Throughout] Blood Pressure 113/78 111/76 Blood Pressure 113/78 [Left] O2 Sat by Pulse 89 89 90 Oximetry 06/26/19 17:15 Temperature Pulse Rate 96 H Pulse Rate [ 97 H Anterior Bilateral Throughout] Respiratory 19 Rate Respiratory 20 Rate [Anterior Bilateral Throughout] Blood Pressure 120/66 Blood Pressure [Left] O2 Sat by Pulse 90 Oximetry ED Medical Decision Making - Lab Data Result diagrams: 06/26/19 16:39 06/26/19 16:39 - EKG Data -: EKG Interpreted by Ia - Radiology Data Radiology results: report reviewed, image reviewed - Medical Decision Making Lab Results 06/26/19 06/26/19 06/26/19 Range/Units 16:39 16:39 16:39 WBC 5.7 (4.5-11.0) K/mm3 RBC 4.21 (3.65-5.03) M/mm3 Hgb 11.6 L (11.8-15.2) gm/dl Hct 35.2 L (35.5-45.6) % MCV 84 (84-94) fl MCH 28 (28-32) pg MCHC 33 (32-34) % RDW 19.3 H (13.2-15.2) % Plt Count 125 L (140-440) K/mm3 Lymph % (Auto) 25.2 (13.4-35.0) % Bledsoe % (Auto) 8.1 H (0.0-7.3) % Eos % (Auto) 0.1 (0.0-4.3) % Baso % (Auto) 0.2 (0.0-1.8) % Lymph # 1.4 (1.2-5.4) K/mm3 Bledsoe # 0.5 (0.0-0.8) K/mm3 Eos # 0.0 (0.0-0.4) K/mm3 Baso # 0.0 (0.0-0.1) K/mm3 Seg Neutrophils % 66.4 (40.0-70.0) % Seg Neutrophils # 3.8 (1.8-7.7) K/mm3 Potassium 4.0 (3.6-5.0) mmol/L Chloride 74.6 L (98-107) mmol/L Carbon Dioxide 18 L (22-30) mmol/L Anion Gap 29 mmol/L BUN 6 L (9-20) mg/dL Creatinine 0.7 L (0.8-1.5) mg/dL Estimated GFR > 60 ml/min BUN/Creatinine Ratio 9 % Glucose 91 (75-100) mg/dL Lactic Acid 1.10 (0.7-2.0) mmol/L Calcium 9.8 (8.4-10.2) mg/dL Total Bilirubin 0.40 (0.1-1.2) mg/dL AST 42 H (5-40) units/L ALT 39 (7-56) units/L Alkaline Phosphatase 137 H (35-129) units/L Troponin T < 0.010 (0.00-0.029) ng/mL Total Protein 7.8 (6.3-8.2) g/dL Albumin 4.1 (3.9-5) g/dL Albumin/Globulin Ratio 1.1 % Vital Signs 06/26/19 06/26/19 06/26/19 16:45 16:53 17:00 Temperature 98.0 F Pulse Rate 104 H 104 H 98 H Pulse Rate [ Anterior Bilateral Throughout] Respiratory 16 19 18 Rate Respiratory Rate [Anterior Bilateral Throughout] Blood Pressure 113/78 111/76 Blood Pressure 113/78 [Left] O2 Sat by Pulse 89 89 90 Oximetry 06/26/19 17:15 Temperature Pulse Rate 96 H Pulse Rate [ 97 H Anterior Bilateral Throughout] Respiratory 19 Rate Respiratory 20 Rate [Anterior Bilateral Throughout] Blood Pressure 120/66 Blood Pressure [Left] O2 Sat by Pulse 90 Oximetry labs noted wbc n xray neg for consolidation trop neg Mg/duoneb and azithro in ER solumedrol given via EMS discussed smoking cessation with pt 1745 improved since admit receiving medications 1750 Na noted- NS infusing pt has hx etoh abuse and has a/c hypoNa 1800 pt getting his meds RN monitoring will see Dr Schofield if any concerns. - Differential Diagnosis copd ae/pna/chf/acs Critical care attestation.: If time is entered above; I have spent that time in minutes in the direct care of this critically ill patient, excluding procedure time. ED Disposition Clinical Impression: COPD (chronic obstructive pulmonary disease), COPD with acute exacerbation, Alcohol abuse, Chronic hypernatremia, Cigarette nicotine dependence Disposition: DC-01 TO HOME OR SELFCARE Is pt being admited?: No Does the pt Need Aspirin: No Condition: Stable Instructions: Chronic Obstructive Pulmonary Disease (ED) Additional Instructions: FOLLOW UP WITH PCP IN 48 HOURS REFERRAL BELOW MEDS ORDERED STOP SMOKING DECREASE YOUR ALCOHOL USE- IT IS CAUSING YOUR SODIUM TO BE LOW CONTINUE HOME MEDS DIET TOLERATED ACTIVITY TOLERATED Prescriptions: predniSONE [Deltasone] 50 mg PO QDAY #5 tab Fluticasone [Flonase] 1 spray NS QDAY #1 bottle levoFLOXacin [Levaquin TAB] 500 mg PO QDAY #10 tablet Albuterol INH(or & Nicu Only) [ProAir HFA Inhaler] 2 puff IH QID PRN #1 inhalation PRN Reason: Shortness Of Breath Benzonatate [Tessalon Perles] 100 mg PO Q12H PRN #20 capsule PRN Reason: Cough Cetirizine HCl [ZyrTEC] 10 mg PO DAILY #30 capsule Referrals: CARRI BRENNER MD [Staff Physician] - 3-5 Days Time of Disposition: 17:29
[2019-06-26 17:14] LABS: Basophils % (Auto) 0.2 % (0.0-1.8); Eosinophils % (Auto) 0.1 % (0.0-4.3); Hematocrit 35.2 % (35.5-45.6); Hemoglobin 11.6 gm/dl (11.8-15.2); Lymphocytes # (Auto) 1.4 K/mm3 (1.2-5.4); Lymphocytes % (Auto) 25.2 % (13.4-35.0); Mean Corpuscular HGB Conc 33 % (32-34); Mean Corpuscular Volume 84 fl (84-94); Monocytes # (Auto) 0.5 K/mm3 (0.0-0.8); Monocytes % (Auto) 8.1 % (0.0-7.3); Platelet Count 125 K/mm3 (140-440); Red Blood Count 4.21 M/mm3 (3.65-5.03); Red Cell Distribution Width 19.3 % (13.2-15.2)
--- NOTE | 2019-06-26 17:17 | XRay Report ---
CHEST 1 VIEW INDICATION / CLINICAL INFORMATION: Difficulty breathing for 3 days. COMPARISON: 04/08/2019 FINDINGS: SUPPORT DEVICES: None. HEART / MEDIASTINUM: No significant abnormality. LUNGS / PLEURA: No significant pulmonary or pleural abnormality.. No pneumothorax. ADDITIONAL FINDINGS: No significant additional findings. IMPRESSION: 1. No acute findings. Signer Name: Ishmael Nascimento MD Signed: 06/26/2019 5:12 PM Workstation Name: [id number]
[2019-06-26 17:40] LABS: Alanine Aminotransferase 39 units/L (7-56); Albumin 4.1 g/dL (3.9-5); BUN/Creatinine Ratio 9; Blood Urea Nitrogen 6 mg/dL (9-20); Calcium 9.8 mg/dL (8.4-10.2); Hemolysis Index 9
[2019-06-26] MEDS ORDERED: guaiFENesin/CODEINE 100-10MG ORAL LIQD 5 ML PO ONE (17:49)
[2019-06-26] MEDS ORDERED: ONDANSETRON 4 MG/2 ML INJ IV ONE (17:49)
[2019-06-26] MEDS ORDERED: SODIUM CHLORIDE 0.9% 1000 ML 1,000 ML IV ONE (17:49)
[2019-06-26 19:40] VITALS: BP 127/85
== END 2019-06-26 19:49 | disposition home or self-care (01) ==
LOC: ED 16:27
DX: J44.1 Chronic obstructive pulmonary disease with (acute) exacerbation (principal); E87.0 Hyperosmolality and hypernatremia; F17.210 Nicotine dependence, cigarettes, uncomplicated; F10.10 Alcohol abuse, uncomplicated; Z98.890 Other specified postprocedural states; Z79.899 Other long term (current) drug therapy
CPT/HCPCS: 36415; 71045; 80053; 82140; 84484; 85025; 94640; 96365; 96375; 99285; J0456; J2405; J7030; J7050; 94644

== ENCOUNTER 2019-07-25 13:29 | Emergency (ER) | payer SELFPAY ==
[2019-07-25] MEDS ORDERED: methylPREDNISolone Sod Succinate 125 MG/2 ML INJ IV ONE (14:38)
[2019-07-25] MEDS ORDERED: guaiFENesin/CODEINE 100-10MG ORAL LIQD 5 ML PO ONE (14:38)
[2019-07-25] MEDS ORDERED: IPRATROPIUM/ALBUTEROL SULFATE 3 ML AMPUL.NEB IH ONE ×3 (14:38→16:01)
--- NOTE | 2019-07-25 14:40 | Emergency Department Report ---
ED General Adult HPI - General Chief complaint: Dyspnea/Respdistress Stated complaint: DIFFICULTY BREATHING Time Seen by Provider: 07/25/19 14:26 Source: patient, EMS Mode of arrival: Stretcher Limitations: No Limitations - History of Present Illness Initial comments: The patient presents to the emergency department with a chief complaint of a cough and shortness of breath that started this morning. Patient states he has a history of COPD and at times has flareups. Patient complains of pain with cough only. Severity scale (0 -10): 0 Improves with: none Worsens with: none Associated Symptoms: denies other symptoms Treatments Prior to Arrival: none - Related Data Previous Rx's Medication Instructions Recorded Last Taken Type Albuterol INH(or & Nicu Only) 2 puff IH QID PRN #1 inhalation 04/09/19 Unknown Rx [ProAir HFA Inhaler] Folic Acid [Folvite] 1 mg PO QDAY #30 tablet 04/09/19 Unknown Rx Multivitamin Tab [Multiple Vitamin 1 each PO QDAY #30 tablet 04/09/19 Unknown Rx TAB (Theragran)] Thiamine [Vitamin B-1] 100 mg PO QDAY #30 tablet 04/09/19 Unknown Rx Albuterol INH(or & Nicu Only) 2 puff IH QID PRN #1 inhalation 06/26/19 Unknown Rx [ProAir HFA Inhaler] Benzonatate [Tessalon Perles] 100 mg PO Q12H PRN #20 capsule 06/26/19 Unknown Rx Cetirizine HCl [ZyrTEC] 10 mg PO DAILY #30 capsule 06/26/19 Unknown Rx Fluticasone [Flonase] 1 spray NS QDAY #1 bottle 06/26/19 Unknown Rx levoFLOXacin [Levaquin TAB] 500 mg PO QDAY #10 tablet 06/26/19 Unknown Rx predniSONE [Deltasone] 50 mg PO QDAY #5 tab 06/26/19 Unknown Rx Albuterol INH(or & Nicu Only) 2 puff IH Q4HR PRN #1 inhalation 07/25/19 Unknown Rx [ProAir HFA Inhaler] Azithromycin [Zithromax Z-ACACIA] 250 mg PO DAILY #6 tablet 07/25/19 Unknown Rx guaiFENesin/CODEINE [Robitussin AC] 5 ml PO Q12HR PRN #180 oral.liqd 07/25/19 Unknown Rx predniSONE [Deltasone] 20 mg PO DAILY #15 tablet 07/25/19 Unknown Rx traMADoL [Ultram] 50 mg PO Q6HR PRN #15 tablet 07/25/19 Unknown Rx Allergies Allergy/AdvReac Type Severity Reaction Status Date / Time No Known Allergies Allergy Verified 06/26/19 17:23 ED Review of Systems ROS: Stated complaint: DIFFICULTY BREATHING Other details as noted in HPI Constitutional: denies: chills, fever Eyes: denies: eye pain, eye discharge, vision change ENT: denies: ear pain, throat pain Respiratory: cough, shortness of breath. denies: wheezing Cardiovascular: denies: chest pain, palpitations Endocrine: no symptoms reported Gastrointestinal: denies: abdominal pain, nausea, diarrhea Genitourinary: denies: urgency, dysuria Musculoskeletal: denies: back pain, joint swelling, arthralgia Skin: denies: rash, lesions Neurological: denies: headache, weakness, paresthesias Psychiatric: denies: anxiety, depression Hematological/Lymphatic: denies: easy bleeding, easy bruising ED Past Medical Hx - Past Medical History Hx Hypertension: Yes Hx COPD: Yes - Surgical History Additional Surgical History: Brain sx - Social History Smoking Status: Current Every Day Smoker Substance Use Type: Alcohol - Medications Home Medications: Home Medications Medication Instructions Recorded Confirmed Last Taken Type Albuterol INH(or & Nicu Only) 2 puff IH QID PRN #1 inhalation 04/09/19 Unknown Rx [ProAir HFA Inhaler] Folic Acid [Folvite] 1 mg PO QDAY #30 tablet 04/09/19 Unknown Rx Multivitamin Tab [Multiple Vitamin 1 each PO QDAY #30 tablet 04/09/19 Unknown Rx TAB (Theragran)] Thiamine [Vitamin B-1] 100 mg PO QDAY #30 tablet 04/09/19 Unknown Rx Albuterol INH(or & Nicu Only) 2 puff IH QID PRN #1 inhalation 06/26/19 Unknown Rx [ProAir HFA Inhaler] Benzonatate [Tessalon Perles] 100 mg PO Q12H PRN #20 capsule 06/26/19 Unknown Rx Cetirizine HCl [ZyrTEC] 10 mg PO DAILY #30 capsule 06/26/19 Unknown Rx Fluticasone [Flonase] 1 spray NS QDAY #1 bottle 06/26/19 Unknown Rx levoFLOXacin [Levaquin TAB] 500 mg PO QDAY #10 tablet 06/26/19 Unknown Rx predniSONE [Deltasone] 50 mg PO QDAY #5 tab 06/26/19 Unknown Rx Albuterol INH(or & Nicu Only) 2 puff IH Q4HR PRN #1 inhalation 07/25/19 Unknown Rx [ProAir HFA Inhaler] Azithromycin [Zithromax Z-ACACIA] 250 mg PO DAILY #6 tablet 07/25/19 Unknown Rx guaiFENesin/CODEINE [Robitussin AC] 5 ml PO Q12HR PRN #180 oral.liqd 07/25/19 Unknown Rx predniSONE [Deltasone] 20 mg PO DAILY #15 tablet 07/25/19 Unknown Rx traMADoL [Ultram] 50 mg PO Q6HR PRN #15 tablet 07/25/19 Unknown Rx ED Physical Exam - General Limitations: No Limitations General appearance: alert, in no apparent distress - Head Head exam: Present: atraumatic, normocephalic - Eye Eye exam: Present: normal appearance, PERRL, EOMI - ENT ENT exam: Present: mucous membranes moist - Neck Neck exam: Present: normal inspection - Respiratory Respiratory exam: Present: decreased breath sounds. Absent: respiratory distress - Cardiovascular Cardiovascular Exam: Present: normal rhythm, tachycardia. Absent: systolic murmur, diastolic murmur, rubs, gallop - GI/Abdominal GI/Abdominal exam: Present: soft, normal bowel sounds. Absent: distended, tenderness - Rectal Rectal exam: Present: deferred - Extremities Exam Extremities exam: Present: normal inspection - Back Exam Back exam: Present: normal inspection - Neurological Exam Neurological exam: Present: alert, oriented X3, CN II-XII intact. Absent: motor sensory deficit - Psychiatric Psychiatric exam: Present: normal affect, normal mood - Skin Skin exam: Present: warm, dry, intact, normal color. Absent: rash ED Course Vital Signs 07/25/19 07/25/19 07/25/19 14:00 16:45 17:51 Temperature 97.4 F L Pulse Rate 118 H 116 H 125 H Respiratory 20 22 Rate Blood Pressure 107/53 Blood Pressure 118/80 127/79 [Left] O2 Sat by Pulse 94 95 Oximetry ED Medical Decision Making - Lab Data Result diagrams: 07/25/19 15:04 07/25/19 15:04 Lab Results 07/25/19 07/25/19 07/25/19 Range/Units 15:04 15:04 15:04 WBC 3.4 L (4.5-11.0) K/mm3 RBC 4.44 (3.65-5.03) M/mm3 Hgb 11.4 L (11.8-15.2) gm/dl Hct 36.2 (35.5-45.6) % MCV 82 L (84-94) fl MCH 26 L (28-32) pg MCHC 31 L (32-34) % RDW 20.5 H (13.2-15.2) % Plt Count 103 L (140-440) K/mm3 Lymph % (Auto) 10.8 L (13.4-35.0) % [place] % (Auto) 10.5 H (0.0-7.3) % Eos % (Auto) 0.4 (0.0-4.3) % Baso % (Auto) 0.7 (0.0-1.8) % Lymph # 0.4 L (1.2-5.4) K/mm3 [place] # 0.4 (0.0-0.8) K/mm3 Eos # 0.0 (0.0-0.4) K/mm3 Baso # 0.0 (0.0-0.1) K/mm3 Seg Neutrophils % 77.6 H (40.0-70.0) % Seg Neutrophils # 2.6 (1.8-7.7) K/mm3 APTT 42.4 H (24.2-36.6) Sec. Sodium 136 L (137-145) mmol/L Potassium 4.4 (3.6-5.0) mmol/L Chloride 96.8 L (98-107) mmol/L Carbon Dioxide 21 L (22-30) mmol/L Anion Gap 23 mmol/L BUN 3 L (9-20) mg/dL Creatinine 0.8 (0.8-1.5) mg/dL Estimated GFR > 60 ml/min BUN/Creatinine Ratio 4 % Glucose 88 (75-100) mg/dL Calcium 9.4 (8.4-10.2) mg/dL Total Bilirubin 0.30 (0.1-1.2) mg/dL AST 178 H (5-40) units/L ALT 92 H (7-56) units/L Alkaline Phosphatase 192 H (35-129) units/L NT-Pro-B Natriuret Pep 54.02 (0-900) pg/mL Total Protein 7.5 (6.3-8.2) g/dL Albumin 4.0 (3.9-5) g/dL Albumin/Globulin Ratio 1.1 % - Radiology Data Radiology results: report reviewed - Medical Decision Making DuoNeb x3 given IV Solu-Medrol given IV magnesium given Critical Care Time: Yes Critical care time in (mins) excluding proc time.: 35 Critical care attestation.: If time is entered above; I have spent that time in minutes in the direct care of this critically ill patient, excluding procedure time. ED Disposition Clinical Impression: COPD exacerbation Disposition: DC-01 TO HOME OR SELFCARE Is pt being admited?: No Does the pt Need Aspirin: No Condition: Stable Instructions: Chronic Obstructive Pulmonary Disease (ED) Additional Instructions: return if worse Referrals: PRIMARY CAREMD [Primary Care Provider] - 3-5 Days [facility] [Provider Group] - 3-5 Days [facility] [Provider Group] - 3-5 Days Time of Disposition: 18:46
--- NOTE | 2019-07-25 15:07 | XRay Report ---
CHEST 1 VIEW INDICATION / CLINICAL INFORMATION: cough. COMPARISON: 06/26/2019 FINDINGS: SUPPORT DEVICES: None. HEART / MEDIASTINUM: No significant abnormality. LUNGS / PLEURA: No significant pulmonary or pleural abnormality.. No pneumothorax. ADDITIONAL FINDINGS: No significant additional findings. IMPRESSION: 1. No acute findings. Signer Name: Ishmael Nascimento MD Signed: 07/25/2019 3:03 PM Workstation Name: [id number]
[2019-07-25 15:29] LABS: Basophils % (Auto) 0.7 % (0.0-1.8); Eosinophils % (Auto) 0.4 % (0.0-4.3); Hematocrit 36.2 % (35.5-45.6); Hemoglobin 11.4 gm/dl (11.8-15.2); Lymphocytes # (Auto) 0.4 K/mm3 (1.2-5.4); Lymphocytes % (Auto) 10.8 % (13.4-35.0); Mean Corpuscular HGB Conc 31 % (32-34); Mean Corpuscular Volume 82 fl (84-94); Monocytes # (Auto) 0.4 K/mm3 (0.0-0.8); Monocytes % (Auto) 10.5 % (0.0-7.3); Platelet Count 103 K/mm3 (140-440); Red Blood Count 4.44 M/mm3 (3.65-5.03)
[2019-07-25 15:31] LABS: Red Cell Distribution Width 20.5 % (13.2-15.2)
[2019-07-25 15:44] LABS: Alanine Aminotransferase 92 units/L (7-56); BUN/Creatinine Ratio 4; Blood Urea Nitrogen 3 mg/dL (9-20); Calcium 9.4 mg/dL (8.4-10.2); Hemolysis Index 6
[2019-07-25] MEDS ORDERED: MAGNESIUM SULFATE 2 GM/50 ML BAG IV ONE (16:00)
[2019-07-25] MEDS ORDERED: HYDROGEN PEROXIDE 118 ML SOLUTION ONE (16:18)
[2019-07-25] MEDS ORDERED: HYDROGEN PEROXIDE 118 ML SOLUTION TP ONE (16:28)
[2019-07-25 17:53] VITALS: BP 127/79
[2019-07-25] MEDS ORDERED: ONDANSETRON 4 MG ODT TAB PO ONE (18:45)
[2019-07-25] MEDS ORDERED: HYDROcodone/ACETAMINOPHEN 10-325MG TAB PO ONE (18:45)
== END 2019-07-25 19:01 | disposition home or self-care (01) ==
LOC: ED 13:29
DX: J44.1 Chronic obstructive pulmonary disease with (acute) exacerbation (principal)
CPT/HCPCS: 36415; 71045; 80053; 83880; 85025; 85730; 94640; 96365; 96375; 99285; J2930; J3475

== ENCOUNTER 2019-08-08 11:48 | Emergency (ER) | payer SELFPAY ==
[2019-08-08] MEDS ORDERED: EPINEPHrine 1:10,000 1 MG/10 ML SYRINGE ONE (11:55)
--- NOTE | 2019-08-08 12:03 | Emergency Department Report ---
ED CPR HPI - General Stated Complaint: CARDIAC ARREST Time Seen by Provider: 08/08/19 11:56 - History of Present Illness Initial Comments: Patient is 53 years old male with history of COPD. Patient brought to the emergency room via EMS from home in a full cardiac arrest, CPR in progress. EMS stated that initial call came at 10:50 AM. EMS stated that patient was eating breakfast when all of a sudden collapsed and became unresponsive. ACLS immediately initiated by EMS, patient intubated with Vasiliy airway. EMS stated that initial rhythm was PEA and then patient changed to asystole. Patient received 3 mg of epinephrine, 1 amp of bicarb by EMS. Blood glucose was 88 per EMS report. Patient remain in asystole. Upon arrival to the ER there is good breath sounds on both side. ACLS protocol continued in the ER however patient remained in asystole. Patient pronounced at 11:51 AM. Total resuscitation time is 1 hour. For further information please refer to code sheet. MD Complaint: stopped breathing, collapsed during rest Time: 10:50 Place: home Bystander CPR Performed: No AED Applied by Bystander/Sample Dye Mixer: No Initial Findings in the Field: no pulse, PEA ROSC in the Field: No Associated Injuries: No Treatments Prior to Arrival: other airway device, chest compressions, epinephrine mgs # (3), sodium bicarbonate - Related Data Previous Rx's Medication Instructions Recorded Last Taken Type Albuterol INH(or & Nicu Only) 2 puff IH QID PRN #1 inhalation 04/09/19 Unknown Rx [ProAir HFA Inhaler] Folic Acid [Folvite] 1 mg PO QDAY #30 tablet 04/09/19 Unknown Rx Multivitamin Tab [Multiple Vitamin 1 each PO QDAY #30 tablet 04/09/19 Unknown Rx TAB (Theragran)] Thiamine [Vitamin B-1] 100 mg PO QDAY #30 tablet 04/09/19 Unknown Rx Albuterol INH(or & Nicu Only) 2 puff IH QID PRN #1 inhalation 06/26/19 Unknown Rx [ProAir HFA Inhaler] Benzonatate [Tessalon Perles] 100 mg PO Q12H PRN #20 capsule 06/26/19 Unknown Rx Cetirizine HCl [ZyrTEC] 10 mg PO DAILY #30 capsule 06/26/19 Unknown Rx Fluticasone [Flonase] 1 spray NS QDAY #1 bottle 06/26/19 Unknown Rx levoFLOXacin [Levaquin TAB] 500 mg PO QDAY #10 tablet 06/26/19 Unknown Rx predniSONE [Deltasone] 50 mg PO QDAY #5 tab 06/26/19 Unknown Rx Albuterol INH(or & Nicu Only) 2 puff IH Q4HR PRN #1 inhalation 07/25/19 Unknown Rx [ProAir HFA Inhaler] Azithromycin [Zithromax Z-ACACIA] 250 mg PO DAILY #6 tablet 07/25/19 Unknown Rx guaiFENesin/CODEINE [Robitussin AC] 5 ml PO Q12HR PRN #180 oral.liqd 07/25/19 Unknown Rx predniSONE [Deltasone] 20 mg PO DAILY #15 tablet 07/25/19 Unknown Rx traMADoL [Ultram] 50 mg PO Q6HR PRN #15 tablet 07/25/19 Unknown Rx Allergies Allergy/AdvReac Type Severity Reaction Status Date / Time No Known Allergies Allergy Verified 06/26/19 17:23 ED Review of Systems ROS: Stated complaint: CARDIAC ARREST Other details as noted in HPI Comment: Unobtainable due to pts medical conditions ED Past Medical Hx - Past Medical History Hx Hypertension: Yes Hx COPD: Yes - Surgical History Additional Surgical History: Brain sx - Social History Smoking Status: Current Every Day Smoker Substance Use Type: Alcohol - Medications Home Medications: Home Medications Medication Instructions Recorded Confirmed Last Taken Type Albuterol INH(or & Nicu Only) 2 puff IH QID PRN #1 inhalation 04/09/19 Unknown Rx [ProAir HFA Inhaler] Folic Acid [Folvite] 1 mg PO QDAY #30 tablet 04/09/19 Unknown Rx Multivitamin Tab [Multiple Vitamin 1 each PO QDAY #30 tablet 04/09/19 Unknown Rx TAB (Theragran)] Thiamine [Vitamin B-1] 100 mg PO QDAY #30 tablet 04/09/19 Unknown Rx Albuterol INH(or & Nicu Only) 2 puff IH QID PRN #1 inhalation 06/26/19 Unknown Rx [ProAir HFA Inhaler] Benzonatate [Tessalon Perles] 100 mg PO Q12H PRN #20 capsule 06/26/19 Unknown Rx Cetirizine HCl [ZyrTEC] 10 mg PO DAILY #30 capsule 06/26/19 Unknown Rx Fluticasone [Flonase] 1 spray NS QDAY #1 bottle 06/26/19 Unknown Rx levoFLOXacin [Levaquin TAB] 500 mg PO QDAY #10 tablet 06/26/19 Unknown Rx predniSONE [Deltasone] 50 mg PO QDAY #5 tab 06/26/19 Unknown Rx Albuterol INH(or & Nicu Only) 2 puff IH Q4HR PRN #1 inhalation 07/25/19 Unknown Rx [ProAir HFA Inhaler] Azithromycin [Zithromax Z-ACACIA] 250 mg PO DAILY #6 tablet 07/25/19 Unknown Rx guaiFENesin/CODEINE [Robitussin AC] 5 ml PO Q12HR PRN #180 oral.liqd 07/25/19 Unknown Rx predniSONE [Deltasone] 20 mg PO DAILY #15 tablet 07/25/19 Unknown Rx traMADoL [Ultram] 50 mg PO Q6HR PRN #15 tablet 07/25/19 Unknown Rx ED Physical Exam - General General appearance: other (CPR in progress.) - Head Head exam: Present: atraumatic - Eye Pupils: Present: other (5 mm dilated and fixed.) - Respiratory Respiratory exam: Present: other (No spontaneous breathing.) - Cardiovascular Cardiovascular Exam: Present: other (No spontaneous heart tones.) - Neurological Exam Neurological exam: Present: other (CPR in progress.) ED Medical Decision Making - Medical Decision Making Patient is 53 years old male with history of COPD. Patient brought to the emergency room via EMS from home in a full cardiac arrest, CPR in progress. EMS stated that initial call came at 10:50 AM. EMS stated that patient was eating breakfast when all of a sudden collapsed and became unresponsive. ACLS immediately initiated by EMS, patient intubated with Vasiliy airway. EMS stated that initial rhythm was PEA and then patient changed to asystole. Patient received 3 mg of epinephrine, 1 amp of bicarb by EMS. Blood glucose was 88 per EMS report. Patient remain in asystole. Upon arrival to the ER there is good breath sounds on both side. ACLS protocol continued in the ER however patient remained in asystole. Patient pronounced at 11:51 AM. Total resuscitation time is 1 hour. For further information please refer to code sheet. Critical Care Time: Yes Critical care time in (mins) excluding proc time.: 30 Critical care attestation.: If time is entered above; I have spent that time in minutes in the direct care of this critically ill patient, excluding procedure time. ED Disposition Clinical Impression: Cardiopulmonary arrest Disposition: DC-20 Is pt being admited?: No Condition: Stable Referrals: ROCKY DOMÍNGUEZ MD [Primary Care Provider] - 3-5 Days
== END 2019-08-08 16:35 ==
LOC: ED 11:48
DX: I46.9 Cardiac arrest, cause unspecified (principal); J44.9 Chronic obstructive pulmonary disease, unspecified; I10 Essential (primary) hypertension
CPT/HCPCS: 92950; 99285; J0171